=== PATIENT | male | born 1965 | race Two or more races ===

== ENCOUNTER 2020-03-26 22:42 | Inpatient (IN) | payer OTHER ==
[~2020-03-26] VITALS: Ht 177.8 cm; Wt 120.2 kg
[2020-03-29] MEDS ORDERED: ESOMEPRAZOLE MA20 MG (08:13)
[2020-03-29] MEDS ORDERED: GLIMEPIRIDE2 M1 (08:13)
[2020-03-29] MEDS ORDERED: SIMVASTATIN10 MG (08:13)
[2020-03-29] MEDS ORDERED: JANUMET 50-1,01 EACH (08:13)
[2020-03-29] MEDS ORDERED: MI-ACID80 MG (08:13)
[2020-04-07] MEDS ORDERED: INTESTINEX680 M1 PO (16:41)
[2020-04-07] MEDS ORDERED: FLAGYL500MG PO (16:41)
[2020-04-07] MEDS ORDERED: CARAFATE1 GM/10 ML PO (16:41)
[2020-04-07] MEDS ORDERED: NEXIUM 24HR20 MG PO (16:42)
== END 2020-04-07 17:14 | disposition home or self-care (01) | DRG 372 ==
LOC: SURG 22:42
PROVIDERS: ADMIT Surgery; ATTEND Surgery
PROC: BW3GYZZ Magnetic Resonance Imaging (MRI) of Pelvic Region using Other Contrast (ICD-10-PCS; principal; 2020-03-27)
PROC: 0W9J30Z Drainage of Pelvic Cavity with Drainage Device, Percutaneous Approach (ICD-10-PCS; 2020-03-29)
PROC: 02HV33Z Insertion of Infusion Device into Superior Vena Cava, Percutaneous Approach (ICD-10-PCS; 2020-04-01)
PROC: BW21ZZZ Computerized Tomography (CT Scan) of Abdomen and Pelvis (ICD-10-PCS; 2020-04-05)
DX: K65.1 Peritoneal abscess (principal); K61.1 Rectal abscess; E66.8 Other obesity; E78.49 Other hyperlipidemia; I10 Essential (primary) hypertension; E11.9 Type 2 diabetes mellitus without complications; D64.9 Anemia, unspecified; K29.70 Gastritis, unspecified, without bleeding; B95.2 Enterococcus as the cause of diseases classified elsewhere; B95.4 Other streptococcus as the cause of diseases classified elsewhere; B96.29 Other Escherichia coli [E. coli] as the cause of diseases classified elsewhere
CPT/HCPCS: 240; 72196